=== PATIENT | female | born 1985 | race Hispanic/Latino ===

== ENCOUNTER 2020-12-13 11:33 | Emergency (ER) | payer MEDICAID, OTHER ==
[~2020-12-13] VITALS: Ht 160 cm; Wt 59.0 kg
[2020-12-13] MEDS ORDERED: KETOROLAC 30MG VIAL (30MG/ML) IV SCH (12:00)
[2020-12-13] MEDS ORDERED: PROMETHAZINE HCL 25 MG/ML 1ML AMPULE IM SCH (12:00)
[2020-12-13] MEDS ORDERED: CYCLOBENZAPRINE HCL 10 MG TABLET PO SCH (12:00)
[2020-12-13] MEDS: 0.9%NACL 1000ML 1,000 ML IV SCH ×2 (12:00→13:36)
[2020-12-13 12:11] LABS: BASOPHILS % (AUTO) 0.4 % (0.0-5.0); EOSINOPHILS % (AUTO) 0.3 % (0.0-8.0); HEMATOCRIT 34.1 % (36-48); LYMPHOCYTES % (AUTO) 2.2 % (21.0-51.0); MEAN CORPUSCULAR HGB CONC 35.8 g/dL (32.0-36.0); MONOCYTES % (AUTO) 4.9 % (3.0-13.0); NEUTROPHILS % (AUTO) 91.9 % (40.0-77.0); PLATELET COUNT (AUTO) 102 K/uL (130-400); RED BLOOD CELL COUNT(AUTO) 4.06 MIL/uL (4.00-5.50); RED CELL DISTRIBUTION WIDTH 11.6 % (11.0-15.5); WHITE BLOOD COUNT (AUTO) 7.3 K/uL (4.8-10.8)
[2020-12-13 12:24] LABS: ALBUMIN 2.5 g/dL (3.5-5.0); BILIRUBIN,TOTAL 0.6 mg/dL (0.2-1.0); POTASSIUM 3.7 mmol/L (3.5-5.1); TOTAL PROTEIN, SERUM 6.9 g/dL (6.0-8.3)
[2020-12-13] MEDS ORDERED: 0.9%NACL 1000ML 1,000 ML IV ONE ×2 (12:25→14:45)
[2020-12-13] MEDS ORDERED: KETOROLAC 30MG VIAL (30MG/ML) ONE (12:25)
[2020-12-13] MEDS ORDERED: CYCLOBENZAPRINE HCL 10 MG TABLET ONE (12:25)
[2020-12-13] MEDS ORDERED: INSULIN HUMULIN R 100 UNIT/ML 3ML ONE (13:31)
[2020-12-13] MEDS ORDERED: INSULIN HUMULIN R 100 UNIT/ML 3ML SQ ONE (14:45)
[2020-12-13] MEDS ORDERED: CYCL10TA16 PO (14:49)
[2020-12-13] MEDS ORDERED: NAPR-1180 PO (14:49)
[2020-12-13 15:03] VITALS: BP 112/78
== END 2020-12-13 15:15 | disposition home or self-care (01) ==
LOC: EDH 11:33
DX: G44.209 Tension-type headache, unspecified, not intractable (principal); E11.65 Type 2 diabetes mellitus with hyperglycemia
CPT/HCPCS: 36415; 70450; 80053; 82010; 82948; 85025; 96361; 96372 ×2; 96374; 99285; J1815; J1885; J7030 ×2

== ENCOUNTER 2020-12-23 13:16 | Emergency (ER) | payer MEDICAID, OTHER ==
[~2020-12-23] VITALS: Ht 149.9 cm; Wt 54.9 kg
[~2020-12-23 13:16] MED LIST: CYCL10TA16 PO; NAPR-1180 PO
[2020-12-23 13:58] LABS: BASOPHILS % (AUTO) 0.2 % (0.0-5.0); HEMATOCRIT 32.6 % (36-48); LYMPHOCYTES % (AUTO) 3.6 % (21.0-51.0); MEAN CORPUSCULAR HEMOGLOBIN 29.1 pg (27.0-33.0); MEAN CORPUSCULAR HGB CONC 33.4 g/dL (32.0-36.0); MEAN CORPUSCULAR VOLUME 87.2 fL (79-99); MONOCYTES % (AUTO) 4.5 % (3.0-13.0); NEUTROPHILS % (AUTO) 91.2 % (40.0-77.0); PLATELET COUNT (AUTO) 567 K/uL (130-400); RED BLOOD CELL COUNT(AUTO) 3.74 MIL/uL (4.00-5.50); RED CELL DISTRIBUTION WIDTH 12.4 % (11.0-15.5); WHITE BLOOD COUNT (AUTO) 19.1 K/uL (4.8-10.8)
[2020-12-23] MEDS ORDERED: CEFTRIAXONE 1G VIAL IM ONE (14:00)
[2020-12-23] MEDS ORDERED: PHENAZOPYRIDINE HCL 200 MG TABLET PO ONE (14:00)
[2020-12-23] MEDS ORDERED: 0.9%NACL 1000ML 1,000 ML IV ONE ×2 (14:00→15:00)
[2020-12-23] MEDS ORDERED: IBUPROFEN 800 MG TAB PO ONE (14:00)
[2020-12-23] MEDS ORDERED: ACETAMINOPHEN 500 MG TABLET PO ONE (14:00)
[2020-12-23 14:02] LABS: APPEARANCE,URINE Cloudy (CLEAR); BILIRUBIN,URINE Negative (NEGATIVE); COLOR,URINE Yellow (YELLOW); GLUCOSE, URINE (UA) >=1000 mg/dL (NEGATIVE); KETONES,URINE 15 mg/dL (NEGATIVE); LEUKOCYTE ESTERASE ,URINE Moderate (NEGATIVE); NITRATE,URINE Positive (NEGATIVE); OCCULT BLOOD,URINE Moderate (NEGATIVE); PH,URINE 6.5 (5.0-8.0); PROTEIN,URINE POS 1+ mg/dL (NEGATIVE); UROBILINOGEN,URINE 0.2 mg/dL (0.2-1.0)
[2020-12-23 14:07] LABS: HCG,QUAL RESULT NEGATIVE (NEGATIVE)
[2020-12-23 14:08] LABS: CREATININE 1.1 mg/dL (0.5-1.5); POTASSIUM 4.1 mmol/L (3.5-5.1)
[2020-12-23 14:13] LABS: BILIRUBIN,TOTAL 1.1 mg/dL (0.2-1.0); TOTAL PROTEIN, SERUM 8.4 g/dL (6.0-8.3)
[2020-12-23 14:16] LABS: BACTERIA,URINE Few /HPF (None Seen); RBC,URINE 26-50 /HPF (0-1)
[2020-12-23 14:17] LABS: SQUAMOUS EPITHELIAL CELL,UR None Seen /HPF (0-2)
[2020-12-23] MEDS ORDERED: INSULIN HUMULIN R 100 UNIT/ML 3ML ONE (14:51)
[2020-12-23] MEDS ORDERED: INSULIN HUMULIN R 100 UNIT/ML 3ML SQ ONE (15:00)
[2020-12-23] MEDS ORDERED: CEPH500B PO (16:00)
[2020-12-23] MEDS ORDERED: ACET-2247 PO (16:00)
[2020-12-23 16:23] VITALS: BP 100/66
== END 2020-12-23 16:23 | disposition home or self-care (01) ==
LOC: EDH 13:16
DX: N39.0 Urinary tract infection, site not specified (principal); E11.65 Type 2 diabetes mellitus with hyperglycemia; Z91.14 Patient's other noncompliance with medication regimen; E86.0 Dehydration
CPT/HCPCS: 36415; 80053; 81001; 81025; 82948; 83605; 83690; 85025; 87040 ×2; 87077 ×2; 87088; 87186 ×2; 93005; 96360; 96372 ×2; 99284; J0696; J1815